=== PATIENT | male | born 1935 | race Caucasian/White ===

== ENCOUNTER → 2018-09-05 12:45 | Emergency (ER) | payer MEDICARE, OTHER ==
--- NOTE | 2018-09-05 13:19 | ED ---
Palpitations / Dysrhythmia - HPI Summary HPI Summary: Pt is a 82 y/o M presenting to the ED with a chief complaint of pacemaker issues first onset on the night of 09/03/18. He states he was lying down to go to bed when he felt a shock through his pacemaker, four separate times. The same thing happened on 09/04/18 twice at night. Both times he was watching TV, and denies feeling his heart racing or pounding before that. He reports shortness of breath. He denies chest pain. The implant date of his current pacemaker/defibrillator is August 20, 2013. It was last checked about 6 months ago, and they stated it should have its battery changed in three years. 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 - History of Current Complaint Chief Complaint: EDDysrhythmPalp Time Seen by Provider: 09/05/18 13:02 Hx Obtained From: Patient Onset/Duration: Sudden Onset, Lasting Days Timing: Intermittent Episodes Lasting: - minutes Severity Initially: Moderate Severity Currently: None Character: Pounding - "shock" Aggravating: Nothing Alleviating: Nothing Associated Signs & Symptoms: Shortness of Breath - Allergy/Home Medications Allergies/Adverse Reactions: Allergies Allergy/AdvReac Type Severity Reaction Status Date / Time No Known Allergies Allergy Verified 09/05/18 12:53 Home Medications: Home Medications Apixaban* [Eliquis*] 5 mg PO BID 09/05/18 [History Confirmed 09/05/18] Carvedilol TAB* [Coreg TAB*] 3.125 mg PO BID 09/05/18 [History Confirmed ] Diazepam TAB(*) [Valium TAB(*)] 5 mg PO BEDTIME 09/05/18 [History Confirmed 03/14] Digoxin TAB* [Lanoxin TAB*] 0.0625 mg PO BID 09/05/18 [History Confirmed ] Gabapentin CAP(*) [Neurontin 300 CAP(*)] 900 mg PO BID 09/05/18 [History Confirmed 09/05/18] Simvastatin (NF) [Zocor (NF)] 40 mg PO DAILY 09/05/18 [History Confirmed ] Testosterone GEL (NF) [Androgel (NF)] 50 mg TOPICAL DAILY 09/05/18 [History Confirmed 09/05/18] Venlafaxine TAB (NF) [Effexor TAB (NF)] 75 mg PO BID 09/05/18 [History Confirmed 09/05/18] PMH/Surg Hx/FS Hx/Imm Hx Previously Healthy: No Endocrine/Hematology History: Reports: Hx Anticoagulant Therapy - eliquis Denies: Hx Diabetes Cardiovascular History: Reports: Hx Atrial Fibrillation, Hx Hypertension, Hx Pacemaker/ICD Infectious Disease History: No Infectious Disease History: Denies: Traveled Outside the [place] in Last 30 Days - Family History Known Family History: Positive: Other - neuropathy - Social History Alcohol Use: None Hx Substance Use: No Substance Use Type: Reports: None Hx Tobacco Use: No Smoking Status (MU): Never Smoked Tobacco Review of Systems Positive: Other - shock from his pacemaker. Negative: Palpitations, Chest Pain Positive: Shortness Of Breath All Other Systems Reviewed And Are Negative: Yes Physical Exam - Summary Physical Exam Summary: Appearance: well appearing, no pain distress Skin: warm, dry, reflects adequate perfusion Head/face: normal Eyes: EOMI, VENKATA ENT: mucous membranes moist Neck: supple, non-tender Respiratory: CTA, breath sounds present Cardiovascular: pulses symmetrical, paced with occasional PVCs, some irregularity. Pacemaker in the R anterior chest. Abdomen: non-tender, soft Bowel Sounds: present Musculoskeletal: normal, strength/ROM intact Neuro: normal, sensory motor intact, A&Ox3 Triage Information Reviewed: Yes Vital Signs On Initial Exam: Initial Vitals Temp Pulse Resp BP Pulse Ox 98.8 F 77 18 124/85 96 09/05/18 12:47 09/05/18 12:47 09/05/18 12:47 09/05/18 12:47 09/05/18 12:47 Vital Signs Reviewed: Yes Diagnostics - Vital Signs Vital Signs Temp Pulse Resp BP Pulse Ox 09/05/18 12:47 98.8 F 77 18 124/85 96 - Laboratory Result Diagrams: 09/05/18 13:30 09/05/18 13:30 Lab Statement: Any lab studies that have been ordered have been reviewed, and results considered in the medical decision making process. - Radiology CXR Radiology Interpretation Completed By: Radiologist Summary of Radiographic Findings: No active cardiopulmonary disease is noted. ED physician has reviewed this report. - EKG 1314 Cardiac Rate: Other Rate - 72bpm V-paced rhythm Summary of EKG Findings: EKG at 1314 shows V-paced rhythm at 72bpm. Course/Dx - Course Course Of Treatment: Nurse's notes reviewed. Patient with subtle symptoms over the course of 2 days that he feels as though he was receiving shocks from his defibrillator/pacemaker. His laboratories are benign. He has ectopy which may have caused his symptoms which she described as more subtle than what would be expected. We waited quite some time for interrogation given that our device here was non-transmitting. The entry level account representative from [employer] came and didn't interrogation and found him to have nonsustained ectopy but no defibrillations. - Diagnoses Differential Diagnosis/HQI/PQRI: Positive: Other - PVCs, SVT, A. fib with RVR, pacemaker fire Provider Diagnoses: Pacemaker complications, PVCs (premature ventricular contractions) - Critical Care Time Critical Care Time: 30-74 min - 30 minutes - CCT is EXCLUSIVE of separately billable procedures. Discharge - Sign-Out/Discharge Documenting (check all that apply): Patient Departure Patient Received Moderate/Deep Sedation with Procedure: No - Discharge Plan Condition: Stable Disposition: HOME Patient Education Materials: Pacemaker (DC) Referrals: [facility] [Outside] Jonathan Cervantes MD [Medical Doctor] - Additional Instructions: Call to schedule follow-up with [facility]. They can also set you up with cardiology here locally if needed. I did give your name of the assistant site manager if you want to call them directly. Return with palpitations, chest pain, worse, new symptoms or other concerns. - Billing Disposition and Condition Condition: STABLE Disposition: Home - Attestation Statements Document Initiated by Scribe: Yes Documenting Scribe: Lupis Marrufo Provider For Whom Osman is Documenting (Include Credential): Maxime Lamas MD. Scribe Attestation: Lupis Echeverria, camilleed for Maxime Lamas MD. on 09/05/18 at 1906. Scribe Documentation Reviewed: Yes Provider Attestation: The documentation as recorded by the [email or web address] accurately reflects the service I personally performed and the decisions made by me, Maxime Lamas MD. Status of Scribe Document: Viewed
[2018-09-05 13:39] LABS: ABS Basophils 0.1 10^3/ul (0-0.2); ABS Eosinophils 0.2 10^3/ul (0-0.6); ABS Monocytes 0.8 10^3/ul (0-0.8); ABS Neutrophils 4.8 10^3/ul (1.5-7.7); Eosinophil % 2.5 %; Hematocrit 47 % (42-52); Hemoglobin 15.2 g/dL (14.0-18.0); Lymphocyte % 25.3 %; Mean Corpuscular HGB Conc 33 g/dL (31-36); Mean Corpuscular Hemoglobin 27 pg (27-31); Mean Corpuscular Volume 84 fL (80-94); Mean Platelet Volume 8.5 fL (7.4-10.4); Nucleated Red Blood Cells % 0.1; Platelet Count 203 10^3/uL (150-450); Red Blood Count 5.56 10^6 /uL (4.18-5.48); Red Cell Distribution Width 22 % (10-15); White Blood Count 7.8 10^3/uL (3.5-10.8)
[2018-09-05 13:47] LABS: INR 1.17 (0.82-1.09)
[2018-09-05 13:57] LABS: Albumin/Globulin Ratio 1.7 (1-3); BUN/Creatinine Ratio 23.8 (8-20); Calcium 9.3 mg/dL (8.6-10.3); EGFR African American 66.3 (>60); EGFR Non-African American 54.8 (>60); Globulin 2.3 g/dL (2-4); Magnesium 2.3 mg/dL (1.9-2.7); Potassium 4.7 mmol/L (3.5-5.0); Total Bilirubin 0.5 mg/dL (0.2-1.0); Total Protein 6.3 g/dL (6.4-8.9)
[2018-09-05 13:59] LABS: Troponin I 0.01 ng/mL (<0.04)
[2018-09-05 15:08] LABS: TSH (Thyroid Stimulating Horm) 1.63 mcIU/mL (0.34-5.60)
== END | disposition home or self-care (01) ==
LOC: ED 12:45 → EDBD 12:45
DX: T82.9XXA Unspecified complication of cardiac and vascular prosthetic device, implant and graft, initial encounter (principal); I49.3 Ventricular premature depolarization; I48.91 Unspecified atrial fibrillation; I10 Essential (primary) hypertension; Z79.01 Long term (current) use of anticoagulants; Z79.899 Other long term (current) drug therapy
CPT/HCPCS: 36415; 71045; 80053; 83605; 83735; 83880; 84443; 84484; 85025; 85610; 93005; 99284